=== PATIENT | female | born 2000 | race Caucasian/White ===

== ENCOUNTER 2019-05-26 15:22 | Emergency (ER) | payer SELFPAY ==
[2019-05-26 15:36] VITALS: BP 119/64; PULSE 80; TEMP 98; BMI 25.7
--- NOTE | 2019-05-26 15:36 | PDOC ---
Rapid Medical Evaluation Time Seen by Provider: 05/26/19 15:31 Medical Evaluation: 05/26/19 15:32 I have performed a brief in-person evaluation of this patient. The patient presents with a chief complaint of: lower abdominal pain/pelvic pain x 2 days. LMP was 04/06/19, but has irregular periods since having her daughter. Had a positive and negative preg test at home. No vaginal bleeding. No dysuria/hematuria. Pertinent physical exam findings: stable, moderate distress secondary to pain, non-toxic appearing I have ordered the following: labs, ua, upreg, beta hcg quant The patient will proceed to the ED for further evaluation Discharge Disposition - Diagnosis Pelvic pain - Referrals - Patient Instructions - Post Discharge Activity
[2019-05-26] MEDS ORDERED: ACETAMINOPHEN 500 MG TABLET (FP) PO ONE (16:22)
[2019-05-26 16:51] LABS: BASO % 0.4 % (0-2.0); EOS % 0.5 % (0-4.5); HEMATOCRIT 38.1 % (32.4-45.2); LYMPH % 20.5 % (8-40); MCH 29.5 pg (25.7-33.7); MCHC 34.2 g/dl (32.0-36.0); MEAN CELL VOLUME 86.2 fl (80-96); MEAN PLT VOLUME 10.2 fl (7.5-11.1); MONO % 7.8 % (3.8-10.2); NEUT % 70.8 % (42.8-82.8); PLATELET COUNT 225 K/MM3 (134-434); RBC 4.42 M/mm3 (3.60-5.2)
[2019-05-26] MEDS ORDERED: ACETAMINOPHEN 325 MG TABLET (FP) ONE (16:58)
[2019-05-26 17:03] LABS: HCG,QUALITATIVE URINE Positive
--- NOTE | 2019-05-26 17:17 | PDOC ---
History of Present Illness - General Chief Complaint: Back Pain Stated Complaint: ABD PAIN Time Seen by Provider: 05/26/19 15:31 History Source: Patient Exam Limitations: No Limitations - History of Present Illness Travel History: No Initial Comments: 05/26/19 17:13 18-year-old female presents the ED with lower suprapubic cramping since yesterday. Patient states her menses also late but has been irregular since delivery of her child. Patient states took 2 test yesterday one positive and 1-. Patient denies any vaginal discharge, back pain, fever, chills nausea or diarrhea Timing/Duration: reports: constant Quality: reports: mild, cramping Abdominal Pain Onset Location: reports: suprapubic Pain Radiation: reports: no radiation Activities at Onset: reports: none Aggravating Factors: improves with: None Alleviating Factors: improves with: None Past History - Travel Traveled outside of the country in the last 30 days: No Close contact w/someone who was outside of country & ill: No - Past Medical History Allergies/Adverse Reactions: Allergies Allergy/AdvReac Type Severity Reaction Status Date / Time No Known Allergies Allergy Verified 05/26/19 15:36 COPD: No - Reproductive History Is Patient Now?: No - Immunization History Immunization Up to Date: No - Psycho Social/Smoking Cessation Hx Smoking History: Never smoked Have you smoked in the past 12 months: No Information on smoking cessation initiated: No Hx Alcohol Use: No Drug/Substance Use Hx: No Patient Lives Alone: No Lives with/in: spouse/SO Review of Systems - Review of Systems Able to Perform ROS?: Yes Is the patient limited Upper Sorbian proficient: Yes Constitutional: No: Symptoms Reported HEENTM: No: Symptoms Reported Respiratory: No: Symptoms reported Cardiac (ROS): No: Symptoms Reported ABD/GI: Yes: Abdominal cramping : No: Symptoms Reported Musculoskeletal: No: Symptoms Reported Integumentary: No: Symptoms Reported Neurological: No: Symptoms reported Endocrine: No: Symptoms Reported Hematologic/Lymphatic: No: Symptoms Reported *Physical Exam - Vital Signs Last Vital Signs Temp Pulse Resp BP Pulse Ox 98.0 F 80 18 119/64 99 05/26/19 15:34 05/26/19 15:34 05/26/19 15:34 05/26/19 15:34 05/26/19 15:34 - Physical Exam General Appearance: Yes: Nourished, Appropriately Dressed. No: Apparent Distress Neck: positive: Normal Thyroid Respiratory/Chest: positive: Lungs Clear, Normal Breath Sounds. negative: Respiratory Distress, Accessory Muscle Use Cardiovascular: positive: Regular Rhythm, Regular Rate. negative: Murmur Gastrointestinal/Abdominal: positive: Soft, Tenderness (midsuprapubic) Musculoskeletal: negative: CVA Tenderness Integumentary: positive: Normal Color, Warm, Moist Neurologic: positive: Motor Strength 5/5 (Ambulatory) ED Treatment Course - LABORATORY CBC & Chemistry Diagram: 05/26/19 16:25 05/26/19 16:25 - ADDITIONAL ORDERS Additional order review: Laboratory Results 05/26/19 16:18 Urine HCG, Qual Positive 05/26/19 16:25 RBC 4.42 MCV 86.2 MCHC 34.2 RDW 14.0 MPV 10.2 Neutrophils % 70.8 Lymphocytes % 20.5 Monocytes % 7.8 Eosinophils % 0.5 Basophils % 0.4 Medical Decision Making - Medical Decision Making 05/26/19 17:19 Chief complaint: With suprapubic cramping since yesterday patient states irregular menses. Patient took 2 tests . one was +1 and 1-. No other complaints. Exam: Mid suprapubic tenderness. Plan: Urine labs and Tylenol ordered 05/26/19 17:22 Laboratory Tests 05/26/19 05/26/19 05/26/19 16:18 16:25 16:25 WBC 7.0 Hgb 13.0 Hct 38.1 Beta HCG, Quant Pending Urine Ketones Negative Urine Nitrite Negative Ur Leukocyte Esterase Negative Urine WBC (Auto) 4 Urine RBC (Auto) 1 Urine HCG, Qual Positive Ultrasound ordered Discharge - Discharge Information Clinical Impression/Diagnosis: Pelvic pain Condition: Stable - Follow up/Referral - Patient Discharge Instructions - Post Discharge Activity
[2019-05-26 17:20] LABS: EPI CELLS 5.9 /HPF (0-5/HPF); HYALINE CASTS 4 /lpf (0-8); URINE APPEARANCE CLEAR; URINE BACTERIA 186.4 /hpf (NEGATIVE); URINE BILIRUBIN NEGATIVE (NEGATIVE); URINE COLOR YELLOW; URINE GLUCOSE (UA) NEGATIVE (NEGATIVE); URINE KETONE NEGATIVE (NEGATIVE); URINE LEUK ESTERASE NEGATIVE (NEGATIVE); URINE NITRITE NEGATIVE (NEGATIVE); URINE PROTEIN NEGATIVE (NEGATIVE); URINE RBC 1 /hpf (0-4); URINE UROBILINOGEN 0.2 mg/dL (0.2-1.0); URINE WBC 4 /hpf (0-5)
[2019-05-26 17:26] LABS: ALBUMIN 4.1 g/dl (3.4-5.0); BILIRUBIN,TOTAL 0.8 mg/dL (0.2-1); BLOOD UREA NITROGEN 12.5 mg/dL (7-18); CALCIUM 8.5 mg/dL (8.5-10.1); CREATININE 0.5 mg/dL (0.55-1.3); POTASSIUM 3.9 mmol/L (3.5-5.1); TOT PROT 7.4 g/dl (6.4-8.2)
--- NOTE | 2019-05-26 19:53 | PDOC ---
*Physical Exam - Vital Signs Last Vital Signs Temp Pulse Resp BP Pulse Ox 98.0 F 80 18 119/64 99 05/26/19 15:34 05/26/19 15:34 05/26/19 15:34 05/26/19 15:34 05/26/19 15:34 ED Treatment Course - LABORATORY CBC & Chemistry Diagram: 05/26/19 16:25 05/26/19 16:25 - ADDITIONAL ORDERS Additional order review: Laboratory Results 05/26/19 05/26/19 05/26/19 16:25 16:25 16:25 Sodium 136 Potassium 3.9 Chloride 107 Carbon Dioxide 23 Anion Gap 6 L BUN 12.5 Creatinine 0.5 L Est GFR (CKD-EPI)AfAm 162.62 Est GFR (CKD-EPI)NonAf 140.31 Random Glucose 95 Calcium 8.5 Total Bilirubin 0.8 AST 12 L ALT 16 Alkaline Phosphatase 81 Total Protein 7.4 Albumin 4.1 Beta HCG, Quant 20054.8 Urine Color Urine Appearance Urine pH Ur Specific [place] Urine Protein Urine Glucose (UA) Urine Ketones Urine Blood Urine Nitrite Urine Bilirubin Urine Urobilinogen Ur Leukocyte Esterase Urine WBC (Auto) Urine RBC (Auto) Urine Casts (Auto) U Epithel Cells (Auto) Urine Bacteria (Auto) Urine HCG, Qual Blood Type O POSITIVE Antibody Screen Negative 05/26/19 16:18 Sodium Potassium Chloride Carbon Dioxide Anion Gap BUN Creatinine Est GFR (CKD-EPI)AfAm Est GFR (CKD-EPI)NonAf Random Glucose Calcium Total Bilirubin AST ALT Alkaline Phosphatase Total Protein Albumin Beta HCG, Quant Urine Color Yellow Urine Appearance Clear Urine pH 5.0 Ur Specific [place] 1.023 Urine Protein Negative Urine Glucose (UA) Negative Urine Ketones Negative Urine Blood Trace Urine Nitrite Negative Urine Bilirubin Negative Urine Urobilinogen 0.2 Ur Leukocyte Esterase Negative Urine WBC (Auto) 4 Urine RBC (Auto) 1 Urine Casts (Auto) 4 U Epithel Cells (Auto) 5.9 Urine Bacteria (Auto) 186.4 Urine HCG, Qual Positive Blood Type Antibody Screen 05/26/19 16:25 RBC 4.42 MCV 86.2 MCHC 34.2 RDW 14.0 MPV 10.2 Neutrophils % 70.8 Lymphocytes % 20.5 Monocytes % 7.8 Eosinophils % 0.5 Basophils % 0.4 - Medications Given in the ED: ED Medications Discontinued Medications Generic Name Dose Route Start Last Admin Trade Name Freq PRN Reason Stop Dose Admin Acetaminophen 975 mg 05/26/19 16:22 05/26/19 17:00 Tylenol - PO 05/26/19 16:23 975 mg ONCE ONE Administration Medical Decision Making - Medical Decision Making 05/26/19 19:51 Patient endorsed to me to check ultrasound report and disposition. Ultrasound report shows IUP 6 weeks Your Discharge Instructions: You must call primary care physician within 24 hours to arrange follow-up. Return to the Emergency Department with any new, persistent or worsening symptoms, for fever, chills, SOB, dizziness or any other concerning changes that may occur. Discharge - Discharge Information Problems reviewed: Yes Clinical Impression/Diagnosis: Pelvic pain Condition: Stable - Admission Yes - Follow up/Referral - Patient Discharge Instructions Patient Printed Discharge Instructions: DI for Abdominal Pain -- Early Additional Instructions: Your Discharge Instructions: You must call primary care physician within 24 hours to arrange follow-up. Return to the Emergency Department with any new, persistent or worsening symptoms, for fever, chills, SOB, dizziness or any other concerning changes that may occur. - Post Discharge Activity
== END 2019-05-26 20:06 | disposition home or self-care (01) ==
LOC: JER 15:22
DX: O26.891 Other specified pregnancy related conditions, first trimester (principal); R10.2 Pelvic and perineal pain; Z3A.01 Less than 8 weeks gestation of pregnancy
CPT/HCPCS: 36415; 76817-TC; 80053; 81003; 84702; 84703; 85025; 86850; 86900; 86901; 87086; 99284-25

== ENCOUNTER 2020-10-04 19:07 | Emergency (ER) | payer OTHER ==
[2020-10-04 19:24] VITALS: BP 105/61; PULSE 72; TEMP 98.2; BMI 22.6
[2020-10-04] MEDS ORDERED: ACETAMINOPHEN 500 MG TABLET (FP) PO ONE (20:37)
[2020-10-04] MEDS ORDERED: ACETAMINOPHEN 500 MG TABLET (FP) ONE (20:51)
[2020-10-04 21:06] LABS: URINE APPEARANCE CLEAR; URINE BILIRUBIN NEGATIVE (NEGATIVE); URINE COLOR YELLOW; URINE GLUCOSE (UA) NEGATIVE (NEGATIVE); URINE KETONE NEGATIVE (NEGATIVE); URINE LEUK ESTERASE NEGATIVE (NEGATIVE); URINE NITRITE NEGATIVE (NEGATIVE); URINE PROTEIN NEGATIVE (NEGATIVE)
[2020-10-04 21:14] LABS: HCG,QUALITATIVE URINE Negative
[2020-10-04] MEDS ORDERED: KETOROLAC TROMETHAMINE 30 MG/1 ML VIAL IM ONE (23:24)
[2020-10-04] MEDS ORDERED: KETOROLAC TROMETHAMINE 30 MG/1 ML VIAL ONE (23:52)
== END 2020-10-05 00:09 | disposition home or self-care (01) ==
LOC: JER 19:07
PROC: 3E0233Z Introduction of Anti-inflammatory into Muscle, Percutaneous Approach (ICD-10-PCS; principal; 2020-10-04)
DX: R30.0 Dysuria (principal)
CPT/HCPCS: 81003; 84703; 87086; 99284-25

== ENCOUNTER 2021-07-05 11:40 | Emergency (ER) | payer OTHER ==
[2021-07-05 12:01] VITALS: BMI 24.8
[2021-07-05] MEDS ORDERED: SODIUM CHLORIDE 0.9% 500 ML INFUS.BAG IV ONE (13:35)
[2021-07-05] MEDS ORDERED: DEXAMETHASONE SOD PHOSPHATE 10 MG/1 ML VIAL PO ONE (16:22)
[2021-07-05] MEDS ORDERED: IBUPROFEN 600 MG TABLET (FP) PO ONE ×2 (16:41→16:53)
[2021-07-05] MEDS ORDERED: ACETAMINOPHEN 325 MG TABLET (FP) PO ONE (16:41)
[2021-07-05] MEDS ORDERED: ACETAMINOPHEN 325 MG TABLET (FP) ONE (16:52)
[2021-07-05] MEDS ORDERED: DEXAMETHASONE SOD PHOSPHATE 10 MG/1 ML VIAL ONE (16:53)
[2021-07-05 17:16] VITALS: BP 110/70; PULSE 115; TEMP 100.2
[2021-07-06 12:09] LABS: SARS-CoV-2 NAA Not Detected (Not Detected)
== END 2021-07-05 17:46 | disposition home or self-care (01) ==
LOC: JER 11:40
DX: J06.9 Acute upper respiratory infection, unspecified (principal); R05.9 Cough, unspecified
CPT/HCPCS: 71046-TC-FY; 87651; 87804; 99284-25; C9803-CS; J1100; U0003; U0005

== ENCOUNTER 2022-03-31 18:13 | Emergency (ER) | payer OTHER ==
[2022-03-31 18:33] VITALS: RESP 18; BMI 25.7
[2022-03-31] MEDS ORDERED: ACETAMINOPHEN 500 MG TABLET (FP) PO ONE (19:52)
[2022-03-31] MEDS ORDERED: ACETAMINOPHEN 500 MG TABLET (FP) ONE (19:54)
[2022-03-31] MEDS ORDERED: AMOXICILLIN 500 MG CAPSULE (FP) PO ONE (20:21)
[2022-03-31] MEDS ORDERED: AMOXICILLIN 250 MG CAPSULE ONE (20:23)
[2022-03-31 20:27] VITALS: BP 115/76; PULSE 114; TEMP 102.1
[2022-03-31 22:01] LABS: THROAT:GRP A STREP NOT DETECTED (NOTDETECTED)
[2022-04-01] MEDS ORDERED: MAG HYDROX/ALH/SMC/DPHA/LIDO 240 ML MOUTHWASH MM SCH ×2 (20:22)
== END 2022-03-31 20:27 | disposition home or self-care (01) ==
LOC: JERFT 18:13
DX: J02.8 Acute pharyngitis due to other specified organisms (principal)
CPT/HCPCS: 0241U-QW; 87651; 99283-25

== ENCOUNTER 2022-07-03 21:40 | Emergency (ER) | payer OTHER ==
[2022-07-03 21:55] VITALS: BP 110/72; PULSE 72; RESP 18; TEMP 97.7; BMI 27.3
[2022-07-03 22:30] LABS: PH,URINE 5.5 (5.0-8.0); URINE APPEARANCE CLEAR; URINE BILIRUBIN NEGATIVE (NEGATIVE); URINE COLOR YELLOW; URINE GLUCOSE (UA) NEGATIVE (NEGATIVE); URINE KETONE TRACE (NEGATIVE); URINE LEUK ESTERASE NEGATIVE (NEGATIVE); URINE NITRITE NEGATIVE (NEGATIVE); URINE PROTEIN NEGATIVE (NEGATIVE)
[2022-07-03 22:41] LABS: HCG,QUALITATIVE URINE Negative
[2022-07-04] MEDS ORDERED: LACTATED RINGERS SOLUTION 1000 ML INFUS.BAG IV ONE (00:06)
[2022-07-04 01:18] LABS: BASO % 0.5 % (0-2.0); EOS % 1.4 % (0-4.5); HEMATOCRIT 39.4 % (32.4-45.2); HEMOGLOBIN 13.6 GM/dL (10.7-15.3); LYMPH % 34.6 % (8-40); MCH 29.1 pg (25.7-33.7); MCHC 34.4 g/dl (32.0-36.0); MEAN CELL VOLUME 84.7 fl (80-96); MEAN PLT VOLUME 9.4 fl (7.5-11.1); MONO % 8.5 % (3.8-10.2); PLATELET COUNT 237 10^3/uL (134-434); RBC 4.65 M/mm3 (3.60-5.2); RDW 13.4 % (11.6-15.6)
[2022-07-04 01:38] LABS: ALBUMIN 4.1 g/dl (3.4-5.0); BLOOD UREA NITROGEN 17.6 mg/dL (7-18)
[2022-07-04 01:41] LABS: CREATININE 0.7 mg/dL (0.55-1.3)
[2022-07-04 01:43] LABS: BILIRUBIN,TOTAL 0.4 mg/dL (0.2-1); TOT PROT 7.5 g/dl (6.4-8.2)
== END 2022-07-04 03:24 | disposition home or self-care (01) ==
LOC: JER 21:40
DX: R06.02 Shortness of breath (principal); R42 Dizziness and giddiness; R11.0 Nausea
CPT/HCPCS: 36415; 71046-TC-FY; 80053; 81003; 84703; 85025; 87086; 93005; 93010; 99285-25

== ENCOUNTER 2024-03-22 00:27 | Emergency (ER) | payer OTHER ==
[2024-03-22 00:45] VITALS: RESP 18; TEMP 98.2; BMI 28.0
[2024-03-22] MEDS ORDERED: FAMOTIDINE 20 MG TABLET ONE (01:57)
[2024-03-22] MEDS ORDERED: ONDANSETRON *ODT* 4 MG TABLET ONE (01:57)
[2024-03-22] MEDS ORDERED: ACETAMINOPHEN 325 MG TABLET (FP) ONE (01:57)
[2024-03-22] MEDS: FAMOTIDINE 10 MG TABLET PO ONE (02:02)
[2024-03-22] MEDS: ACETAMINOPHEN 500 MG TABLET (FP) PO ONE (02:02)
[2024-03-22] MEDS: ONDANSETRON *ODT* 4 MG TABLET SL ONE (02:03)
[2024-03-22 02:19] LABS: PH,URINE 5.5 (5.0-8.0); URINE APPEARANCE CLEAR; URINE BILIRUBIN NEGATIVE (NEGATIVE); URINE COLOR YELLOW; URINE GLUCOSE (UA) NEGATIVE (NEGATIVE); URINE KETONE NEGATIVE (NEGATIVE); URINE LEUK ESTERASE NEGATIVE (NEGATIVE); URINE NITRITE NEGATIVE (NEGATIVE); URINE PROTEIN NEGATIVE (NEGATIVE)
[2024-03-22 03:00] LABS: HIV INTERPRETATION NEGATIVE (NEGATIVE)
[2024-03-22 03:59] VITALS: BP 129/71; PULSE 80
== END 2024-03-22 03:59 | disposition home or self-care (01) ==
LOC: JER 00:27
DX: O21.9 Vomiting of pregnancy, unspecified (principal); O99.891 Other specified diseases and conditions complicating pregnancy; R50.9 Fever, unspecified; Z3A.01 Less than 8 weeks gestation of pregnancy; Z20.822 Contact with and (suspected) exposure to COVID-19
CPT/HCPCS: 0241U-QW; 36415; 81003; 86803; 87086; 87186; 87389; 99283-25; Q0162

== ENCOUNTER 2024-06-30 14:02 | Emergency (ER) | payer OTHER ==
[2024-06-30 14:08] VITALS: BP 127/65; PULSE 93; RESP 18; TEMP 97; BMI 28.8
== END 2024-06-30 15:33 | disposition home or self-care (01) ==
LOC: JERFT 14:02
DX: O9A.212 Injury, poisoning and certain other consequences of external causes complicating pregnancy, second trimester (principal); S93.402A Sprain of unspecified ligament of left ankle, initial encounter; X50.1XXA Overexertion from prolonged static or awkward postures, initial encounter; Z3A.22 22 weeks gestation of pregnancy
CPT/HCPCS: 73610-TC-LT-FY; 73630-TC-LT; 99283-25

== ENCOUNTER 2024-09-02 19:30 | Inpatient (IN) | payer OTHER ==
[2024-09-02 20:55] LABS: BASOPHILS # 0.02 x10^3/uL (0.01-0.08); EOSINOPHIL % 0.2 % (0.7-5.8); EOSINOPHILS # 0.03 x10^3/uL (0.04-0.36); HEMATOCRIT 28.3 % (34.1-44.9); HEMOGLOBIN 9.3 g/dL (11.2-15.7); MCHC 32.9 g/dl (32.2-35.5); MEAN PLT VOLUME 12.3 fl (9.4-12.3); MONOCYTE % 11.5 % (4.7-12.5); PLATELET COUNT 179 x10^3/uL (182-369)
[2024-09-02] MEDS ORDERED: ELECTROLYTE-148 SOLN 1,000 ML IV SCH (21:13)
[2024-09-02 21:15] LABS: POTASSIUM 3.7 mmol/L (3.5-5.1)
[2024-09-02] MEDS ORDERED: CEFAZOLIN SODIUM 2 GM VIAL IVPB SCH (21:15)
[2024-09-02 21:17] LABS: CALCIUM 8.4 mg/dL (8.5-10.1)
[2024-09-02 21:18] LABS: ALBUMIN 2.5 g/dl (3.4-5.0); BLOOD UREA NITROGEN 9.7 mg/dL (7-18)
[2024-09-02 21:21] LABS: CREATININE 0.5 mg/dL (0.55-1.3)
[2024-09-02 21:22] LABS: BILIRUBIN,TOTAL 0.3 mg/dL (0.2-1); TOT PROT 6.1 g/dl (6.4-8.2)
[2024-09-02] MEDS ORDERED: CEFAZOLIN SODIUM 2 GM VIAL ONE (22:00)
[2024-09-02] MEDS ORDERED: DEXTROSE 5%-WATER 100 ML IVPB ONE (22:00)
[2024-09-02] MEDS: CEFAZOLIN SODIUM 2 GM in DEXTROSE 5%-WATER 100 ML IVPB SCH (22:30)
[2024-09-02] MEDS ORDERED: BUTORPHANOL TARTRATE 1 MG/ML VIAL ONE (22:47)
[2024-09-02] MEDS ORDERED: PROMETHAZINE HCL 25 MG/1 ML VIAL ONE (22:48)
[2024-09-02] MEDS: PROMETHAZINE HCL 25 MG/1 ML VIAL IVPB SCH (23:00)
[2024-09-02] MEDS: BUTORPHANOL TARTRATE 1 MG/ML VIAL IVPB SCH (23:00)
[2024-09-03 02:19] VITALS: BMI 28.6
[2024-09-03] MEDS: ELECTROLYTE-148 SOLN 1,000 ML IV SCH (03:00)
[2024-09-03] MEDS ORDERED: CEFAZOLIN SODIUM 2 GM VIAL ONE ×3 (05:50→20:25)
[2024-09-03] MEDS ORDERED: DEXTROSE 5%-WATER 100 ML IVPB ONE ×2 (05:51→20:25)
[2024-09-03 08:57] VITALS: RESP 18
[2024-09-03 09:28] LABS: ABSOLUTE IMMATURE GRANULOCYTES 0.07 x10^3/uL (0.0-0.031); BASOPHILS # 0.03 x10^3/uL (0.01-0.08); EOSINOPHIL % 0.2 % (0.7-5.8); EOSINOPHILS # 0.03 x10^3/uL (0.04-0.36); HEMATOCRIT 26.4 % (34.1-44.9); HEMOGLOBIN 8.5 g/dL (11.2-15.7); MCHC 32.2 g/dl (32.2-35.5); MEAN CELL VOLUME 88.3 fl (79.4-94.8); MEAN PLT VOLUME 11.9 fl (9.4-12.3); MONOCYTE # 0.84 x10^3/uL (0.24-0.86); PLATELET COUNT 165 x10^3/uL (182-369); RDW 14.1 % (12.1-16.5)
[2024-09-03 09:57] LABS: POTASSIUM 3.6 mmol/L (3.5-5.1)
[2024-09-03 09:59] LABS: CALCIUM 8.2 mg/dL (8.5-10.1)
[2024-09-03 10:00] LABS: ALBUMIN 2.3 g/dl (3.4-5.0); BLOOD UREA NITROGEN 7.7 mg/dL (7-18)
[2024-09-03 10:03] LABS: CREATININE 0.5 mg/dL (0.55-1.3)
[2024-09-03 10:04] LABS: BILIRUBIN,TOTAL 0.4 mg/dL (0.2-1); TOT PROT 5.6 g/dl (6.4-8.2)
[2024-09-03 17:20] LABS: EPI CELLS >36 /uL (0-25.1); HYALINE CASTS 1 /uL (0-3.1); URINE APPEARANCE CLOUDY; URINE BACTERIA >9,000 /uL (0-1359); URINE BILIRUBIN NEGATIVE (NEGATIVE); URINE COLOR YELLOW; URINE GLUCOSE (UA) NEGATIVE (NEGATIVE); URINE KETONE NEGATIVE (NEGATIVE); URINE LEUK ESTERASE 3+ (NEGATIVE); URINE NITRITE NEGATIVE (NEGATIVE); URINE PROTEIN NEGATIVE (NEGATIVE); URINE RBC 7 /uL (0-23.9); URINE UROBILINOGEN 0.2 mg/dL (0.2-1.0); URINE WBC 305 /uL (0-25.8)
[2024-09-03 20:35] VITALS: BP 116/57; PULSE 100; TEMP 97.3
== END 2024-09-03 21:16 | disposition home or self-care (01) | DRG 566 ==
LOC: JDEL 19:30 → JLDR 21:00 → OBSVTOIN 23:05 → JLDR 23:05
PROVIDERS: ADMIT Obstetrics & Gynecology; ATTEND Obstetrics & Gynecology
DX: O23.03 Infections of kidney in pregnancy, third trimester (principal); O26.893 Other specified pregnancy related conditions, third trimester; N13.30 Unspecified hydronephrosis; O34.211 Maternal care for low transverse scar from previous cesarean delivery; Z3A.32 32 weeks gestation of pregnancy; N85.8 Other specified noninflammatory disorders of uterus
CPT/HCPCS: 36415; 76775-TC; 76819-TC; 80053; 81003; 85025; 87086; G0378

== ENCOUNTER 2024-10-28 06:00 | Inpatient (IN) | payer OTHER ==
[2024-10-28 07:01] LABS: ABSOLUTE IMMATURE GRANULOCYTES 0.03 x10^3/uL (0.0-0.031); BASOPHILS # 0.04 x10^3/uL (0.01-0.08); EOSINOPHIL % 0.9 % (0.7-5.8); EOSINOPHILS # 0.08 x10^3/uL (0.04-0.36); MCHC 31.2 g/dl (32.2-35.5); MEAN CELL VOLUME 85.3 fl (79.4-94.8); MEAN PLT VOLUME 12.2 fl (9.4-12.3); MONOCYTE # 0.63 x10^3/uL (0.24-0.86); MONOCYTE % 7.1 % (4.7-12.5); RDW 20.2 % (12.1-16.5)
[2024-10-28 07:05] VITALS: BMI 31.1
[2024-10-28 07:05] LABS: GLUCOSE,RANDOM 87.0 mg/dL (74-106)
[2024-10-28 07:06] LABS: CO2 19.0 mmol/L (21-32)
[2024-10-28] MEDS ORDERED: TERBUTALINE SULFATE 1 MG/1 ML VIAL SQ ONE (07:09)
[2024-10-28 07:11] LABS: CREATININE 0.44 mg/dL (0.55-1.3)
[2024-10-28] MEDS: TERBUTALINE SULFATE 1 MG/1 ML VIAL SQ ONE (07:12)
[2024-10-28 07:15] LABS: INR 1.01 (0.83-1.09); PROTHROMBIN TIME (PATIENT) 11.1 SEC (9.7-13.0)
[2024-10-28] MEDS ORDERED: PHENYLEPHRINE HCL 10 MG/1 ML SINGLE DOSE VIAL ONE (07:16)
[2024-10-28] MEDS ORDERED: FENTANYL CITRATE/PF 50 MCG/ML VIAL ONE (07:16)
[2024-10-28] MEDS ORDERED: KETOROLAC TROMETHAMINE 30 MG/1 ML VIAL ONE (07:16)
[2024-10-28] MEDS ORDERED: morphine SULFATE/PF 1 MG/2 ML (2cc Syringe - QUVA) ONE (07:16)
[2024-10-28] MEDS ORDERED: ONDANSETRON 4 MG/2 ML VIAL ONE (07:16)
[2024-10-28] MEDS ORDERED: OXYTOCIN 10 UNITS/ML VIAL ONE (07:16)
[2024-10-28 07:18] LABS: ACTIVATED PTT 29.5 SECONDS (25.2-36.5)
[2024-10-28] MEDS ORDERED: LIGASURE IMPACT TP ONE (07:28)
[2024-10-28] MEDS ORDERED: METHYLERGONOVINE MALEATE 0.2 MG/1 ML AMP IM PRN (09:02)
[2024-10-28 09:05] LABS: CORD BASE EXCESS -5.1 mmol/L (0-2); CORD HCO3 21.2 mmHg (20-29); CORD PCO2 43.8 mmHg (30-78); CORD pH 7.302 (7.14-7.44)
[2024-10-28 09:06] LABS: CORD BASE EXCESS -7.1 mmol/L (0-2); CORD HCO3 21.0 mmHg (20-29); CORD PCO2 52.3 mmHg (30-78); CORD pH 7.222 (7.14-7.44)
[2024-10-28] MEDS ORDERED: OXYTOCIN 20 UNITS in 0.9% NS 20 UNIT/1,000 ML INFUS.BAG IV ONE (10:40)
[2024-10-28] MEDS: OXYTOCIN 20 UNITS in 0.9% NS 20 UNIT/1,000 ML INFUS.BAG IV SCH (10:45)
[2024-10-28] MEDS: ACETAMINOPHEN 1000 MG/100 ML BAG IVPB PRN (18:31)
[2024-10-28 21:10] VITALS: RESP 18
[2024-10-29] MEDS: IBUPROFEN 600 MG TABLET (FP) PO PRN (05:54)
[2024-10-29 06:55] LABS: ABSOLUTE IMMATURE GRANULOCYTES 0.03 x10^3/uL (0.0-0.031); BASOPHILS # 0.04 x10^3/uL (0.01-0.08); EOSINOPHIL % 0.4 % (0.7-5.8); EOSINOPHILS # 0.03 x10^3/uL (0.04-0.36); MCHC 31.7 g/dl (32.2-35.5); MEAN CELL VOLUME 86.0 fl (79.4-94.8); MEAN PLT VOLUME 12.1 fl (9.4-12.3); MONOCYTE # 0.49 x10^3/uL (0.24-0.86); MONOCYTE % 5.9 % (4.7-12.5); RDW 20.0 % (12.1-16.5)
[2024-10-29] MEDS: ACETAMINOPHEN 325 MG TABLET (FP) PO PRN (08:58)
[2024-10-29] MEDS ORDERED: BISACODYL 10 MG SUPP.RECT RC PRN (09:02)
[2024-10-29] MEDS: SIMETHICONE 80 MG TAB.CHEW (FP) PO PRN (20:00)
[2024-10-31 07:09] LABS: MCHC 31.8 g/dl (32.2-35.5); MEAN CELL VOLUME 86.0 fl (79.4-94.8); MEAN PLT VOLUME 11.9 fl (9.4-12.3); RDW 19.9 % (12.1-16.5)
[2024-10-31 08:00] VITALS: BP 109/60; PULSE 63; TEMP 98.7
== END 2024-10-31 12:30 | disposition home or self-care (01) | DRG 540 ==
LOC: JLDR 06:00 → J3W 11:50
PROVIDERS: ADMIT Obstetrics & Gynecology Obstetrics; ATTEND Obstetrics & Gynecology Obstetrics
PROC: 10D00Z1 Extraction of Products of Conception, Low, Open Approach (ICD-10-PCS; principal; 2024-10-28)
PROC: 0UB70ZZ Excision of Bilateral Fallopian Tubes, Open Approach (ICD-10-PCS; 2024-10-28)
DX: O34.219 Maternal care for unspecified type scar from previous cesarean delivery (principal); Z3A.39 39 weeks gestation of pregnancy; Z37.0 Single live birth; Z30.2 Encounter for sterilization
CPT/HCPCS: 36415; 36600; 59409; 80048; 82803; 85025; 85610; 85730; 86780; 86850; 86900; 86901; 88305-TC; 88307-TC